=== PATIENT | female | born 1965 | race Caucasian/White ===

== ENCOUNTER → 2021-01-14 | Outpatient (CLI) | payer OTHER | LOC: MRI 10:00 | DX: C50.919 Malignant neoplasm of unspecified site of unspecified female breast (principal); Z53.9 Procedure and treatment not carried out, unspecified reason ==

== ENCOUNTER → 2021-02-05 | Outpatient (CLI) | payer OTHER | LOC: US 10:30 | DX: C50.512 Malignant neoplasm of lower-outer quadrant of left female breast (principal) | CPT/HCPCS: 76641-LT ==

== ENCOUNTER → 2021-02-19 | Outpatient (CLI) | payer OTHER | LOC: CT 02-12 09:00 | DX: C50.512 Malignant neoplasm of lower-outer quadrant of left female breast (principal) | CPT/HCPCS: 71260; Q9967 ==

== ENCOUNTER → 2021-03-21 | Outpatient (CLI) | payer OTHER | LOC: US 03-14 10:00 | DX: C79.81 Secondary malignant neoplasm of breast (principal); C50.512 Malignant neoplasm of lower-outer quadrant of left female breast; Z17.0 Estrogen receptor positive status [ER+] ==

== ENCOUNTER 2021-05-27 20:21 | Observation (INO) | payer OTHER ==
[~2021-05-27] VITALS: Ht 167.6 cm; Wt 163.7 kg
[2021-05-27 21:03] LABS: HEMOGLOBIN 12.4 gm/dl (12.3-15.3); RED BLOOD COUNT 3.66 M/UL (4.00-5.10); WHITE BLOOD COUNT 13.2 K/UL (4.5-11.0)
[2021-05-27 21:25] LABS: BUN/CREATININE RATIO 12 (0-10)
[2021-05-28] MEDS ORDERED: OXYBUTYNIN CHLO15 MG PO (02:07)
[2021-05-28] MEDS ORDERED: PREDNISONE 5 MG5 MG PO (02:08)
[2021-05-28] MEDS ORDERED: HYDROCHLOROTHIA25 MG PO (02:09)
[2021-05-28] MEDS ORDERED: HUMIRA40 MG/0.4 SQ (02:09)
[2021-05-28] MEDS ORDERED: COZAAR100 MG PO (02:09)
[2021-05-28] MEDS ORDERED: LASIX 40 MG TAB40 MG PO (02:10)
[2021-05-28] MEDS ORDERED: IBUPROFEN800 MG PO (02:10)
[2021-05-28] MEDS ORDERED: K-DUR TAB 20 M20 MEQ PO (02:11)
[2021-05-29 06:51] LABS: HEMOGLOBIN 12.5 gm/dl (12.3-15.3); RED BLOOD COUNT 3.75 M/UL (4.00-5.10)
[2021-05-29] MEDS ORDERED: K-DUR TAB 20 M20 MEQ PO (11:42)
[2021-05-29] MEDS ORDERED: FUROSEMIDE40 MG PO (11:42)
== END 2021-05-29 21:15 | disposition short-term general hospital (02) ==
LOC: ER1 20:21 → CDU 05-28 01:51 → MED SURG 4 05-28 10:21
PROVIDERS: Internal Medicine; Physician Assistant; ADMIT Internal Medicine
DX: I31.3 Pericardial effusion (noninflammatory) (principal); J96.01 Acute respiratory failure with hypoxia; J90 Pleural effusion, not elsewhere classified; R59.0 Localized enlarged lymph nodes; R91.1 Solitary pulmonary nodule; I10 Essential (primary) hypertension; E87.6 Hypokalemia; E66.01 Morbid (severe) obesity due to excess calories; Z79.899 Other long term (current) drug therapy; Z88.0 Allergy status to penicillin; Z88.8 Allergy status to other drugs, medicaments and biological substances; Z20.822 Contact with and (suspected) exposure to COVID-19; Z85.3 Personal history of malignant neoplasm of breast; Z98.51 Tubal ligation status
CPT/HCPCS: 0240U; 36415; 36600; 71045; 80048; 80053; 82550; 82553; 82803; 83874; 83880; 84484; 85025; 85379; 93308; 94640; 94760; 99285; G0378